=== PATIENT | male | born 1985 | race Caucasian/White ===

== ENCOUNTER 2024-07-06 15:02 | Emergency (ER) | payer OTHER ==
[~2024-07-06] VITALS: Ht 188 cm; Wt 152.9 kg
--- OUTSIDE RECORDS SUMMARY | 2024-07-06 15:09 | XMS ---
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 [place] VISIT COUNT (12 MO.) 2 [facility] TOTAL 2 NOTE: Visits indicate total known visits. ED/UCC VISIT TRACKING (12 MO.) 07/06/2024 15:03 [facility] [place] TYPE: Emergency COMPLAINT: - TOE INJURY 07/06/2024 11:28 [facility] [place] TYPE: Emergency COMPLAINT: - RT TOE INJURY INPATIENT VISIT TRACKING (12 MO.) No inpatient visits to display in this time frame [email or web address]
[2024-07-06] MEDS ORDERED: ZYRTEC10 MG PO (16:51)
[2024-07-06 19:45] VITALS: BP 148/95
== END 2024-07-06 19:45 | disposition home or self-care (01) ==
LOC: ED 15:02
DX: S92.421A Displaced fracture of distal phalanx of right great toe, initial encounter for closed fracture (principal); W22.8XXA Striking against or struck by other objects, initial encounter; Z79.899 Other long term (current) drug therapy
CPT/HCPCS: 28495; 73660; 99283-25